=== PATIENT | female | born 1990 | race Two or more races ===

== ENCOUNTER 2021-07-15 17:53 | Emergency (ER) | payer MEDICAID ==
[~2021-07-15] VITALS: Ht 154.9 cm; Wt 106.6 kg
[2021-07-15 17:55] VITALS: BP 132/91
[2021-07-15] MEDS ORDERED: TRAM-297 PO (19:36)
[2021-07-15] MEDS ORDERED: traMADol HCL 50 MG TAB PO ONE (19:45)
== END 2021-07-15 19:53 | disposition home or self-care (01) ==
LOC: ER 17:53
DX: S93.402A Sprain of unspecified ligament of left ankle, initial encounter (principal); Z90.49 Acquired absence of other specified parts of digestive tract; Z98.51 Tubal ligation status; X50.1XXA Overexertion from prolonged static or awkward postures, initial encounter; Y93.89 Activity, other specified; Y92.89 Other specified places as the place of occurrence of the external cause; Y99.8 Other external cause status
CPT/HCPCS: 73600